=== PATIENT | male | born 1980 | race Caucasian/White ===

== ENCOUNTER 2024-05-22 04:14 | Emergency (ER) | payer OTHER, SELFPAY ==
[2024-05-22 04:15] VITALS: BP 191/120; PULSE 65; RESP 18; TEMP 36.5; O2SAT 99; BMI 41.7
[2024-05-22 04:18] VITALS: BP 121/120; PULSE 65; RESP 16; TEMP 36.5; O2SAT 99
--- NOTE | 2024-05-22 04:32 | CT_ITS ---
STUDY: CT ABDOMEN AND PELVIS WITHOUT CONTRAST REASON FOR EXAM: Male, 43 years old patient with right-sided flank pain. RADIATION DOSAGE (If Supplied By Facility): CTDIvol = ( 23.93 ) mGy, DLP = ( 1399.21 ) mGycm TECHNIQUE: Transaxial images were obtained from the dome of the diaphragm to the symphysis pubis without oral contrast, and without intravenous contrast. Sagittal and coronal images were reconstructed. Individualized dose optimization techniques were used for this CT. COMPARISON: Prior comparison studies are not available for review at this time. FINDINGS: The visualized lung bases are unremarkable. The visualized portions of the heart are within normal limits. Normal liver. There are surgical clips in the gallbladder fossa consistent with a prior cholecystectomy. Normal spleen. Normal pancreas. Normal bilateral adrenal glands. There is mild right-sided hydronephrosis and hydroureter secondary to a proximal ureteral calculus measuring 10 mm in greatest dimension. There is some right-sided perinephric stranding and some enlargement of the right kidney consistent with acute obstructive uropathy. Normal left kidney. Normal visualized stomach. There is no obvious dilated bowel, ascites or pneumoperitoneum. The small bowel has a grossly normal appearance. The descending and sigmoid colon is nondistended. Normal colon. The appendix is visualized and appears normal. Normal abdominal aorta. Normal inferior vena cava. Normal retroperitoneum. Normal urinary bladder. Normal visualized prostate gland. Normal abdominal wall. There are diffuse degenerative changes of the visualized spine. 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 CT/Abdomen/Pelvis without Cont IMPRESSION: Mild right-sided hydronephrosis and hydroureter secondary to a proximal ureteral calculus. Electronically Signed: Dunia Wade MD at 6:59 EDT ,
[2024-05-22] MEDS: Ketorolac 30 MG/ML Syringe IV (04:37)
[2024-05-22] MEDS: 0.9% Normal Saline (1000mL) 1,000 ML 999 ML IV (04:37)
[2024-05-22 04:40] LABS: Absolute Lymphocyte Count 0.98 X10^3/uL (0.83-4.51); Absolute Neutrophil Count 8.2 X10^3/uL (2.0-7.7); Basophil# 0.05 X10^3/uL; Basophil% 0.5 % (0-1); Eosinophil# 0.05 X10^3/uL; Eosinophils% 0.5 % (0-5); Hemoglobin 15.3 g/dL (13.0-16.5); Lymphocyte # 0.98 X10^3/ul (0.83-4.51); Mean Corpuscular Hgb 29.2 pg (27.0-32.0); Mean Corpuscular Volume 85.9 fL (80-94); Mean Platelet Vol. 10.3 fl (6.2-12.0); Monocyte# 0.44 X10^3/uL; Monocyte% 4.5 % (0-10); NRBC Flagged by Analyzer 0 % (0-5); Neutrophil # 8.23 X10^3/uL (2.7-7.7); Neutrophil % 84.1 % (47-70); Platelet Count 188 K/mm3 (150-450); RBC Distribution Width CV 12.5 % (11.6-14.6); RBC Distribution Width SD 38.5 fl (35.1-43.9); Red Blood Count 5.24 M/mm3 (4.6-6.2); White Blood Count 9.8 K/mm3 (4.4-11.0)
[2024-05-22 04:54] LABS: Anion Gap 7 (5-15); BUN 19 mg/dL (7-18); BUN/Creat Ratio 12.4 RATIO (10-20); Calcium,Total 9.4 mg/dL (8.5-10.1); Chloride 105 mmol/L (98-107); Creatinine, Serum 1.53 mg/dL (0.70-1.30); EST Glomerular Filtration Rate 53 mL/min (>60); Est Glom Filt Rate - Afr Amer 64 mL/min (>60); Glucose 175 mg/dL (74-106); Potassium 3.7 mmol/L (3.5-5.1); Sodium Level 140 mmol/L (136-145)
[2024-05-22 05:18] VITALS: BP 165/90; PULSE 59; RESP 17; TEMP 36.6; O2SAT 98
[2024-05-22 06:00] VITALS: BP 173/100; PULSE 63; RESP 18; TEMP 36.6; O2SAT 95
[2024-05-22 06:15] VITALS: BP 165/93; PULSE 69; RESP 17; O2SAT 98
--- NOTE | 2024-05-22 06:59 | EX.ED.DYSGE1 ---
HPI History of Present Illness Chief Complaint: Abd Pain Informant: patient and spouse/S.O. Narrative Narrative: Patient is a 43-year-old male with past medical history of hypertension. He states that last night [place] when he developed sudden onset right-sided abdominal/flank pain. He states the pain is sharp in nature and radiates towards his groin and is caused nausea and vomiting when it first came on. He denies any trauma or excessive activity he denies any hematuria or dysuria. He states he took [id number] medications and waited a few hours but symptoms are persistent and seem to be worsening and therefore he comes in for evaluation [facility] Medical History Hypertension Home Medications ?Medication ?Instructions ?Recorded ?Last Taken ?Type cephalexin 500 mg capsule 500 mg PO TID 7 days #21 caps 05/22/24 Unknown Rx ketorolac 10 mg tablet 10 mg PO 4X/DAY PRN pain 5 days 05/22/24 Unknown Rx #20 tabs losartan 100 mg tablet 100 mg PO DAILY 05/22/24 Unknown History metoprolol succinate 50 mg capsule 50 mg PO DAILY 05/22/24 Unknown History sprinkle, ext. release 24 hr (Kapspargo Sprinkle) ondansetron 4 mg disintegrating 4 mg PO TID PRN nausea and 05/22/24 Unknown Rx tablet vomiting #21 tabs oxycodone-acetaminophen 5 mg-325 1 tab PO Q6H PRN pain 5 days #20 05/22/24 Unknown Rx mg tablet (Percocet) tabs tamsulosin 0.4 mg capsule (Flomax) 0.4 mg PO DAILY 14 days #14 caps 05/22/24 Unknown Rx Allergy/AdvReac Type Severity Reaction Status Date / Time azithromycin AdvReac PT UNSURE Verified 05/22/24 04:15 OF REACTION Surgical History (Updated 05/22/24 @ 04:17 by Lee Ann Jordan) Hx of cholecystectomy Social History Smoking Status: Never smoker ROS ROS ED Constitutional Constitutional ED: Denies chills or fever(s) ENT ENT ED: Denies sore throat Cardiovascular Cardiovascular: Denies chest pain Respiratory/Chest Respiratory/Chest: Denies cough or dyspnea Gastrointestinal Gastrointestinal: Reports abdominal pain, nausea and vomiting; Denies diarrhea Genitourinary Genitourinary ED: Denies dysuria or hematuria Musculoskeletal Musculoskeletal: Reports back pain Integumentary Denies rash Neurologic Neurologic: Denies headache(s) Hematologic/Lymphatic Hematologic/Lymphatic: Denies easy bleeding or easy bruising EXAM Physical Exam Const Vital Signs: 05/22/24 04:15 05/22/24 04:18 05/22/24 05:18 Temperature 97.7 F L 97.7 F L 97.9 F Temperature Source Temporal Temporal Oral Pulse Rate 65 65 59 L Respiratory Rate 18 16 17 Blood Pressure 191/120 H 121/120 H 165/90 H Blood Pressure Mean 143 120 115 Pulse Ox 99 99 98 Oxygen Delivery Method Room Air Room Air Room Air 05/22/24 06:00 05/22/24 06:15 Temperature 97.9 F Temperature Source Temporal Pulse Rate 63 69 Respiratory Rate 18 17 Blood Pressure 173/100 H 165/93 H Blood Pressure Mean 124 117 Pulse Ox 95 98 Oxygen Delivery Method Room Air Room Air Positive well nourished, well developed and obese General Appearance ED: well developed; Negative for pallor Nutritional Appearance: obese HEENT HEENT Narrative: Normocephalic atraumatic Eyes PERRL and EOMs intact bilaterally General Eye ED: Negative for scleral icterus Neck supple Resp normal respiratory effort and clear to auscultation bilaterally Cardio regular rate and regular rhythm Rate: other Other Details: Heart is regular rate and rhythm without murmurs rubs or gallops Radial and carotid pulses are equal and symmetric GI non-distended and no masses GI Narrative: Abdomen is obese soft and nondistended with normal active bowel sounds. There is pain with palpation along the right lateral abdomen without voluntary guarding or rigidity. No pulsatile mass or fluid wave. Auscultation: normoactive bowel sounds Palpation: soft Back/Spine Back/Spine Narrative: Positive right CVA pain noted Extremity normal to inspection Neuro oriented x3, CN's II-XII intact bilaterally and no sensory deficits noted Sensorium / Orientation: alert Motor Exam: strength 5/5 throughout Psych mental status grossly normal Skin no rashes or lesions noted General Skin Exam: Negative for jaundice or pallor MDM MDM MDM Narrative Medical decision making narrative: Patient arrived to the ER hypertensive but has a past medical history of this and otherwise with stable vitals. He had sudden onset of right-sided pain which radiated towards his groin and back. Differential diagnosis is for UTI versus pyelonephritis versus kidney stone versus acute appendicitis versus atypical biliary colic versus pancreatitis. The patient had previous cholecystectomy and therefore concern for biliary colic or acute cholecystitis is low. Based on the presentation of pain concern for appendicitis is low as well. Physical exam history is most consistent with kidney stone and therefore basic labs were obtained as well as a noncontrast CT. labs revealed no signs of acute kidney injury. CT scan showed a relatively large stone at 6 mm in the right proximal ureter consistent with his history and exam. After Toradol and IV fluids patient had improvement of his pain and was able to sleep. Therefore at this time as his workup is not showing signs of acute kidney injury or overt findings of urosepsis and his pain is controlled there is not need for emergent urology consultation or placement in the hospital. Patient will be started on Percocet Toradol Flomax Zofran in order to prevent secondary infection Keflex. He will follow-up with urology on an outpatient basis but agrees to return to the hospital if his symptoms or not controlled with the prescribed medication History & Record Review Discussion w/independent historian: Patient and Significant other Lab Data Attestation: I reviewed the patient's lab results. Labs: Laboratory Results - last 24 hr 05/22/24 04:25 WBC 9.8 RBC 5.24 Hgb 15.3 Hct 45.0 MCV 85.9 MCH 29.2 MCHC 34.0 RDW Std Deviation 38.5 RDW Coeff of Martha 12.5 Plt Count 188 MPV 10.3 Immature Gran % (Auto) 0.400 Neut % (Auto) 84.1 H Lymph % (Auto) 10.0 L [place] % (Auto) 4.5 Eos % (Auto) 0.5 Baso % (Auto) 0.5 Absolute Neuts (auto) 8.2 H Absolute Lymphs (auto) 0.98 Nucleated RBC % 0 Sodium 140 Potassium 3.7 Chloride 105 Carbon Dioxide 28.0 Anion Gap 7 BUN 19 H Creatinine 1.53 H Estim Creat Clear Calc 101.70 Est GFR (MDRD) Af Amer 64 Est GFR (MDRD) Non-Af 53 L BUN/Creatinine Ratio 12.4 Glucose 175 H Calcium 9.4 Radiography Diagnostic Testing: Clinical Impression(s) from Imaging Studies Abdomen/Pelvis CT 05/22/24 04:32 IMPRESSION: Mild right-sided hydronephrosis and hydroureter secondary to a proximal ureteral calculus. Electronically Signed: Dunia Wade MD at 6:59 EDT Reading Location ID and State: [facility] / [place] , Service support , Discharge Plan Triage Chief Complaint: Abd Pain ED Provider: Rolo Oleary Dx/Rx/DC Orders Clinical Impression: Kidney stone on right side, Renal colic, Hypertension Instructions: ED Kidney Stone with Pain Prescriptions: New ketorolac 10 mg tablet 10 mg PO 4X/DAY PRN (Reason: pain) 5 Days Qty: 20 0RF tamsulosin [Flomax] 0.4 mg capsule 0.4 mg PO DAILY 14 Days Qty: 14 0RF ondansetron 4 mg tablet,disintegrating 4 mg PO TID PRN (Reason: nausea and vomiting) Qty: 21 0RF cephalexin 500 mg capsule 500 mg PO TID 7 Days Qty: 21 0RF oxycodone-acetaminophen [Percocet] 5-325 mg tablet 1 tab PO Q6H PRN (Reason: pain) 5 Days Qty: 20 0RF No Action losartan 100 mg tablet 100 mg PO DAILY Kapspargo Sprinkle 50 mg capsule,sprinkle,ER 24hr 50 mg PO DAILY Primary Care Provider: MAKEDA JAIME Referrals: MAKEDA JAIME [Other] Activity Restrictions/Additional Instructions: Please keep yourself well-hydrated and take the prescribed medications as directed to control your symptoms. Follow-up with urology to discuss further treatment options return to the ER if you develop a fever over 100.4 or your pain is not controlled. Print Language: Yakut Disposition Disposition: Home, Self Care
[2024-05-22] MEDS: oxyCODONE 5 MG Tablet 10 MG PO (07:15)
[2024-05-22 07:18] VITALS: BP 178/98; PULSE 77; RESP 19; TEMP 36.6; O2SAT 99
== END 2024-05-22 07:27 | disposition home or self-care (01) ==
PROVIDERS: Emergency Provider Emergency Medicine; Visit Provider Emergency Medicine
DX: N13.2 Hydronephrosis with renal and ureteral calculous obstruction (principal); I10 Essential (primary) hypertension; Z79.899 Other long term (current) drug therapy; Z90.49 Acquired absence of other specified parts of digestive tract
CPT/HCPCS: 74176; 80048; 85025; 96361; 96374; 99283; J7030; A4216